=== PATIENT | female | born 2000 | race Caucasian/White ===

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

== ENCOUNTER 2024-02-08 13:38 | Inpatient (IN) | payer OTHER ==
[~2024-02-08] VITALS: Ht 167.6 cm; Wt 91.8 kg
[2024-02-08] VITALS (25 sets, daily range): BP systolic 97–142; BP diastolic 52–99; PULSE 71–129; TEMP 98–98.5
[~2024-02-08 13:38] MED LIST changes: +AMOXICILLIN 8751 TAB PO; +ATIVAN 0.50.5 MG/TAB PO; +CELEXA10 MG PO; +LO LOESTRIN FE1 TAB PO
--- NOTE | 2024-02-08 13:50 | NUR ---
PT AMBULATORY TO LR4 WITH SIGNIFICANT OTHER. PT CHANGED INTO CLEAN GOWN. FHR MONITOR/TOCO APPLIED. PT CAME IN COMPLAINING OF LEAKING OF FLUID. PT DENIES ANY VAGINAL BLEEDING OR REGULAR CONTRACTIONS. PT REPORTS GOOD MOVEMENT.
[2024-02-08] MEDS ORDERED: LR & Oxytocin 500 ML IV SCH (15:15)
[2024-02-08] MEDS ORDERED: LR 1,000 ML IV SCH (15:15)
--- NOTE | 2024-02-08 15:37 | NUR ---
INITIATING NIPPLE STIMULATION PROTOCOL.
[2024-02-08 15:40] LABS: BASO % 0.1 % (0.0-2.0); EOS % 0.2 % (0.0-4.0); GRAN # 10.5 K/mm3 (1.4-6.5); GRAN % 72.3 % (42.2-75.2); HEMATOCRIT 41.6 % (37.0-47.0); HEMOGLOBIN 13.8 g/dl (12.5-16.0); LYMPH # 2.9 K/mm3 (1.2-3.4); LYMPH % 19.5 % (20.0-51.0); MEAN CELL VOLUME 92 fl (80.0-100.0); MEAN CORPUSCULAR HEMOGLOBIN 31 pg (27-31); MEAN CORPUSCULAR HGB CONC 33 g/dl (33.0-37.0); MEAN PLATELET VOLUME 10.6 fl (7.4-10.4); MONO % 6.8 % (1.7-9.3); PLATELET COUNT 287 K/mm3 (130-400); RED BLOOD COUNT 4.52 M/mm3 (4.10-5.30); REDCELL DISTRIBUTION WIDTH-CV 13.5 % (11.5-14.5)
--- NOTE | 2024-02-08 16:04 | NUR ---
NIPPLE STIMULATION PROTOCOL DISCONTINUED
--- NOTE | 2024-02-08 18:00 | NUR ---
THIS RN SWITCHES PT TO WIRELESS FHR MONITOR/TOCO
--- NOTE | 2024-02-08 18:03 | NUR ---
Nasreen PAEZ LOCK EXPERT CALLED FOR EPIDURAL PLACEMENT
[2024-02-08] MEDS ORDERED: CELEXA 20MG20 MG/TAB PO (18:11)
[2024-02-08] MEDS ORDERED: PRENATAL TABLET PO (18:12)
[2024-02-08] MEDS ORDERED: UNISOM25 MG PO (18:12)
[2024-02-08] MEDS ORDERED: STOOL SOFTENER100 M2 PO (18:12)
[2024-02-08] MEDS ORDERED: ASPIRIN 81M81 MG/TA2 PO (18:13)
[2024-02-08] MEDS ORDERED: ROPivacaine PF 0.2% 200 ML IV ONE (18:42)
[2024-02-08] MEDS ORDERED: diphenhydrAMINE 25 MG CAP PO PRN (19:00)
[2024-02-08] MEDS ORDERED: Naloxone 0.4 MG/ML VIAL IV PRN (19:00)
[2024-02-08] MEDS ORDERED: Ondansetron 4 MG/2 ML VIAL IV PRN (19:00)
[2024-02-08] MEDS ORDERED: diphenhydrAMINE 50 MG/ML 1 ML VIAL IV PRN (19:00)
[2024-02-08] MEDS ORDERED: ePHEDrine 50 MG/10 ML VIAL IV PRN (19:00)
--- NOTE | 2024-02-08 19:04 | NUR ---
185- PATIENT CALLED OUT STATING SHE DIDN'T FEEL WELL. THIS NURSE AT BEDSIDE. BOLUS STARTED. PATIENT REPOSITIONED TO RIGHT LATERAL. BABY WITH NOTEABLE DECELERATION. 1852- EPHEDRINE ADMINISTERED VIA IV. 1854- PATIENT REPOSITIONED TO LEFT LATERAL. PITOCIN TURNED OFF. 1857- PATIENT REPOSITIONED IN HANDS AND KNEES. PATIENT STATES SHE IS FEELING BETTER. BABY HEART RATE RECOVERING TO BASELINE. 1903- PATIENT REPOSITIONED TO LEFT LATERAL.
[2024-02-09] VITALS (33 sets, daily range): BP systolic 96–144; BP diastolic 46–95; PULSE 93–154; TEMP 97.2–98.5
--- NOTE | 2024-02-09 03:23 | NUR ---
0035- PATIENT SVE COMPLETE. NOTEABLE DECELERATION NOTED. PATIENT REPOSITIONED TO LEFT LATERAL. 0043- DR. KNIGHT NOTIFIED OF BABY DECELERATION. 0045- PARISH CATHETER REMOVED. 0050- PATIENT BEGINS COACHED PUSHING WITH CONTRACTIONS. 0100- DR. KNIGHT AT BEDSIDE. DISCUSSES TRYING POSITION CHANGED FOR TRYING TO GET BABY TO TURN. 0155- PATIENT BEGINS COACHED PUSHING 0232- PATIENT REQUESTS TO TALK TO DR. KNIGHT. DR. KNIGHT NOTIFIED. 0248- DR. KNIGHT AT BEDSIDE. PATIENT EDUCATED ON OPTIONS OF VACUUM AND POSSIBLE IF BABY DOESN'T CONTINUE TO PROGRESS. PATIENT VERBALIZES WANTING TO TRY A VACUUM ASSIST. 0307- DR. KNIGHT AT BEDSIDE. BED BROKEN DOWN FOR DELIVERY. 0308- DR. KNIGHT PERFORMS STRAIGHT CATH. 0309- VACUUM APPLIED BY DR. KNIGHT NO PRESSURE APPLIED. 0311- VACUUM PRESSURE APPLIED WITH CONTRACTION AND PRESSURE RELEASED AT COMPLETION OF CONTRACTION 0313- VACUUM PRESSURE APPLIED WITH CONTRACTION AND PRESSURE RELEASED AT COMPLETION OF CONTRACTION. 0315- PATIENT EDUCATED ON BABY NOT MOVING WELL WITH GOOD PUSHING EFFORTS AND VACUUM ASSIST. PATIENT AGREES TO PRIMARY . 0323- PARISH CATHETER PLACED.
[2024-02-09] MEDS ORDERED: NS 20 ML IV ONE (03:24)
[2024-02-09] MEDS ORDERED: Oxytocin 10 UNITS/ML VIAL ONE (03:24)
[2024-02-09] MEDS ORDERED: Ketorolac 60 MG/2 ML VIAL IM ONE (03:24)
[2024-02-09] MEDS ORDERED: Ondansetron 4 MG/2 ML VIAL ONE (03:24)
[2024-02-09] MEDS ORDERED: dexAMETHasone 10 MG/ML VIAL ONE (03:24)
[2024-02-09] MEDS ORDERED: Meperidine 50 MG/ML 1 ML VIAL ONE (03:44)
[2024-02-09] MEDS ORDERED: LR 1,000 ML IV ONE (03:56)
[2024-02-09] MEDS ORDERED: Magnes Hydrox (MOM) 80 MG/ML 30 ML CUP PO PRN (04:30)
[2024-02-09] MEDS ORDERED: Measles/Mumps/Rubella Virus Vaccine Live w Diluent 0.5 ML VIAL SQ SCH (04:30)
[2024-02-09] MEDS ORDERED: oxyCODONE 5 MG TAB PO PRN ×2 (04:30→23:30)
[2024-02-09] MEDS ORDERED: Naloxone 0.4 MG/ML VIAL IV PRN (04:30)
[2024-02-09] MEDS ORDERED: Ondansetron 4 MG/2 ML VIAL IV PRN (04:30)
[2024-02-09] MEDS ORDERED: Loratadine 10 MG TAB PO PRN (04:30)
[2024-02-09] MEDS ORDERED: Acetaminophen 500 MG TAB PO SCH ×2 (04:30→21:30)
[2024-02-09] MEDS ORDERED: LR 1,000 ML IV PRN (04:30)
[2024-02-09] MEDS ORDERED: Sennosides/Docusate 8.6-50 MG TAB PO SCH (08:00)
[2024-02-09] MEDS ORDERED: Prenatal Vitamins/Iron/FA TAB PO SCH (09:00)
[2024-02-09] MEDS ORDERED: Citalopram 20 MG TAB PO SCH (09:00)
[2024-02-09] MEDS ORDERED: Ibuprofen 800 MG TAB PO SCH (10:19)
--- NOTE | 2024-02-09 10:20 | NUR ---
Initial visit: Parents thanked Wheelage Clerk for offering Congratulations and God's blessings for the of their son. Wheelage Clerk thanked family for choosing our [facility].
[2024-02-09] MEDS ORDERED: traZODone 50 MG TAB PO PRN (21:00)
[2024-02-10 07:42] VITALS: BP 119/62; PULSE 95; TEMP 97.8
[2024-02-10] MEDS ORDERED: IBU800 M1 PO (08:25)
[2024-02-10 16:30] VITALS: BP 123/69; PULSE 110; TEMP 98.2
[2024-02-10 19:00] VITALS: BP 121/74; PULSE 120; TEMP 98.4
[2024-02-11 07:00] VITALS: BP 127/80; PULSE 105; TEMP 97.7
[2024-02-11] MEDS ORDERED: MOTRIN 800800 MG/TAB PO (11:56)
[2024-02-11] MEDS ORDERED: ROXICODONE 55 MG/TAB PO (11:56)
--- NOTE | 2024-02-11 12:33 | NUR ---
DISCHARGE TEACHING COMPLETED. EDUCATED ON FOLLOW UP APPOINTMENTS AND PRESCRIPTIONS. QUESTIONS INIVITED AND ANSWERED.
== END 2024-02-11 12:50 | disposition home or self-care (01) | DRG 788 ==
LOC: LDRO 13:38 → LDR 14:44 → LDRO 15:02 → OB 02-09 06:22
PROVIDERS: ADMIT Obstetrics & Gynecology
PROC: 10D00Z1 Extraction of Products of Conception, Low, Open Approach (ICD-10-PCS; principal; 2024-02-09)
DX: O99.344 Other mental disorders complicating childbirth (principal); O77.0 Labor and delivery complicated by meconium in amniotic fluid; F41.0 Panic disorder [episodic paroxysmal anxiety]; F41.9 Anxiety disorder, unspecified; O76 Abnormality in fetal heart rate and rhythm complicating labor and delivery; Z3A.39 39 weeks gestation of pregnancy; Z37.0 Single live birth; Z86.16 Personal history of COVID-19; Z88.1 Allergy status to other antibiotic agents
CPT/HCPCS: J0665; J0690; J1100; J1885; J2175; J2405; J2590; J2795; J7120